=== PATIENT | male | born 1985 | race Caucasian/White ===

== ENCOUNTER 2024-01-02 17:35 | Emergency (ER) | payer BC, SELFPAY ==
[2024-01-02 18:57] VITALS: BP 146/87; PULSE 99; RESP 18; TEMP 36.8; O2SAT 98; BMI 35.6
--- NOTE | 2024-01-02 19:02 | ED_ITS ---
Discharge Plan Disposition Patient Disposition: Home, Self-Care Condition: Good Prescriptions Prescriptions: New valacyclovir 1 gram tablet 1,000 mg PO Q8H 7 Days Qty: 21 0RF Referrals Follow up/Referrals: Kip Bustamante [Primary Care Provider] - See instructions Activity Restrictions/Add. Instructions Additional Instructions/Restrictions: Take medication as prescribed Take your medicines exactly as prescribed Antiviral medicine helps you get better faster and may help prevent later problems. Try not to scratch or pick at the blisters.Keep the blisters moist until they heal over. One way to do this is to cover them with a thin layer of petroleum jelly, such as Vaseline, and a non-stick bandage. Take an [id number]-hrhveyb pain medicine, such as acetaminophen (Tylenol), ibuprof en (Advil, Motrin), or naproxen (Aleve). .Avoid close contact with people until the blisters have healed. It is very important for you to avoid contact with anyone who has never had chickenpox or the chickenpox vaccine. Young babies and anyone who is or has a hard time fighting infection (such as someone with HIV, diabetes, or cancer) are especially at risk. Clinical Impressions Clinical Impression: Shingles Qualifiers: Herpes zoster complications: without complications Qualified Code(s): B02.9 - Zoster without complications Stand Alone Forms Stand Alone Forms: Work/School Release Instructions Patient Instructions: Shingles, DI for Shingles, Valacyclovir Print Language Print Language: Georgian Discharge ED Provider: Mily Brown [facility] [place] HPI General Stated complaint: Rash on chest & back Mode of Arrival: Ambulatory Source of Information: Patient Time Seen by Provider: 01/02/24 19:02 Description of Symptoms (Recalled from Triage Doc. by RN): TRUNK, RASH, BURNING HEENT Symptoms (Recalled from RN notes): No Resp Symptoms (Recalled from RN notes): No Skin Symptoms (Recalled from RN notes): Yes MS Symptoms (Recalled from RN notes): No Functional Status (Recalled from RN notes): WNL History of Present Illness Provider Complaint: Rash on chest that starts in the middle of his chest and extends under right arm and on right shoulder blade area rash tender, burning and hurts at times States spread worse today Related Data Previous Rx's ?Medication ?Instructions ?Recorded valacyclovir 1 gram tablet 1,000 mg PO Q8H 7 days #21 tabs 01/02/24 Allergies Allergy/AdvReac Type Severity Reaction Status Date / Time No Known Allergies Allergy Verified 01/02/24 19:04 Worker's Comp Is this a Worker's Comp case?: No [facility] Disclaimer: The information contained in this section may have been updated after the patient was seen, as this information can be updated by other users. Social History Smoking Status: Unknown if ever smoked alcohol intake: never current occupational status: employed Travel in the last 8 weeks: None ROS Obtained: Yes All systems reviewed & no additional complaints except as documented and Yes Systems reviewed as appropriate & no additional complaints except as documented Constitutional Constitutional: Reports system reviewed and no additional complaints, except as documented and Reports as per HPI ENT Ears, Nose, Mouth, and Throat: Reports system reviewed and no additional complaints, except as documented and Reports as per HPI Cardiovascular Cardiovascular: Reports system reviewed and no additional complaints, except as documented and Reports as per HPI Respiratory Respiratory: Reports system reviewed and no additional complaints, except as documented and Reports as per HPI Gastrointestinal Gastrointestingal: Reports system reviewed and no additional complaints, except as documented and as per HPI Genitourinary Male Genitourinary: Reports system reviewed and no additional complaints, except as documented and Reports as per HPI Integumentary/Breasts Skin/Breast: Reports system reviewed and no additional complaints, except as documented, Reports as per HPI and Reports rash Physical Exam General General appearance: alert and in no apparent distress Respiratory Respiratory exam: Present normal lung sounds bilaterally; Absent respiratory distress or wheezes Cardiovascular Cardiovascular exam: Present regular rate, normal rhythm and normal heart sounds Abdominal Exam Abdominal exam: Present soft, distention and normal bowel sounds Neurological Exam Neurological exam: Present alert, oriented X3 and normal gait Skin Skin exam: Present rash (blister like rash on right side of chest that extends from mid chest around right side onto right shoulder blade area appears like shingles) Medical Decision Making Medical Records Screening: Per USPSTF and CDC recommendations, given the prevalence of disease in our [facility], it is our hospital?s policy to screen for HIV and viral Hepatitis for all patients aged 18 and over and those with ongoing risk factors. Daniele Inquiry Pt receiving controlled substance: No Daniele was queried for this patient: No Vital Signs: 01/02/24 18:57 Temperature 98.3 F Temperature Source Oral Pulse Rate [Left Radial] 99 H Respiratory Rate 18 Blood Pressure [Left Arm] 146/87 H Blood Pressure Mean [Left Arm] 106 02 Sat by Pulse Oximetry 98
[2024-01-02 19:10] VITALS: BP 146/87; PULSE 99; RESP 18; TEMP 36.8
== END 2024-01-02 19:13 | disposition home or self-care (01) ==
PROVIDERS: Emergency Provider Nurse Practitioner; PCP Internal Medicine
DX: B02.9 Zoster without complications (principal)
CPT/HCPCS: 99213; G0381